=== PATIENT | male | born 1955 | race African-American/Black ===

== ENCOUNTER 2020-12-30 12:15 | Inpatient (IN) | payer MEDICAID, OTHER ==
[~2020-12-30] VITALS: Ht 172.7 cm; Wt 70.8 kg
[2020-12-30] MEDS ORDERED: ACETAMINOPHEN 325MG TABLET PO ONE (12:30)
[2020-12-30] MEDS ORDERED: METOCLOPRAMIDE HCL 10MG/2ML VIAL IV ONE (12:30)
[2020-12-30 13:10] LABS: BASOPHILS % 0.9 % (0.0-2.0); EOSINOPHILS % 1.1 % (0.0-5.0); HEMATOCRIT. 43.7 % (42.0-52.0); HEMOGLOBIN. 15.2 g/dL (14.0-18.0); LYMPHOCYTES % 19.2 % (20.0-50.0); MEAN CORPUSCULAR HEMOGLOBIN 32.5 pg (28.0-32.0); MEAN CORPUSCULAR VOLUME 93.5 fL (80.0-94.0); MEAN PLATELET VOLUME 9.1 fl (7.4-10.4); MONOCYTES % 6.2 % (2.0-8.0); NEUTROPHILS % 72.6 % (40.0-76.0); PLATELET 167 x1000/uL (130-400); RED BLOOD CELL COUNT 4.67 mill/uL (4.7-6.1); RED CELL DISTRIBUTION WIDTH 14.1 % (11.6-14.6)
[2020-12-30 13:17] LABS: CHLORIDE 109 mEq/L (98-107)
[2020-12-30 13:21] LABS: ETHANOL BLOOD < 10 mg/dL
[2020-12-30] MEDS ORDERED: MORPHINE SULFATE 4 MG/ML CPJ (NOT FOR IM USE) IV NR (14:30)
[2020-12-30] MEDS ORDERED: IOHEXOL-350 100 ML BOTTLE ONE (14:35)
[2020-12-30 17:30] LABS: *COCAINE SCREEN URINE NEGATIVE (NEGATIVE)
[2020-12-30 17:32] LABS: *AMPHETAMINES SCREEN URINE NEGATIVE (NEGATIVE); *BARBITURATES SCREEN URINE NEGATIVE (NEGATIVE); *BENZODIAZEPINES SCREEN URINE NEGATIVE (NEGATIVE); CANNABINOID URINE SCREEN NEGATIVE (NEGATIVE); METHADONE URINE SCREEN NEGATIVE (NEGATIVE); OPIATES URINE SCREEN PRESUMTIVE POSITIVE (NEGATIVE); PHENCYCLIDINE URINE SCREEN NEGATIVE (NEGATIVE)
[2020-12-30] MEDS ORDERED: CLONIDINE 0.1MG TABLET PO PRN (23:00)
[2020-12-30] MEDS: HYDROCODONE/ACETAMINOPHEN 10/325MG TABLET PO PRN (23:26)
[2020-12-30 23:55] VITALS: BP 152/73
[2020-12-31] VITALS: BP 123/67
[2020-12-31 04:00] VITALS: BP 133/74
[2020-12-31 06:56] LABS: BASOPHILS % 0.8 % (0.0-2.0); EOSINOPHILS % 2.8 % (0.0-5.0); HEMATOCRIT. 40.4 % (42.0-52.0); HEMOGLOBIN. 13.7 g/dL (14.0-18.0); LYMPHOCYTES % 39.2 % (20.0-50.0); MEAN CORPUSCULAR HEMOGLOBIN 31.9 pg (28.0-32.0); MEAN CORPUSCULAR VOLUME 93.9 fL (80.0-94.0); MEAN PLATELET VOLUME 9.6 fl (7.4-10.4); MONOCYTES % 10.1 % (2.0-8.0); NEUTROPHILS % 47.1 % (40.0-76.0); PLATELET 167 x1000/uL (130-400); RED BLOOD CELL COUNT 4.31 mill/uL (4.7-6.1); RED CELL DISTRIBUTION WIDTH 14.1 % (11.6-14.6)
[2020-12-31] MEDS: HYDROCODONE/ACETAMINOPHEN 10/325MG TABLET PO PRN ×2 (06:58→11:59)
[2020-12-31 07:02] LABS: CHLORIDE 108 mEq/L (98-107)
[2020-12-31 07:10] LABS: LDL CHOLESTEROL 84 mg/dL (5-100)
[2020-12-31 07:12] LABS: HDL CHOLESTEROL 72 mg/dL (40-59)
[2020-12-31] MEDS ORDERED: POTASSIUM CHLORIDE 20MEQ TABLET SR PO SCH (07:45)
[2020-12-31] MEDS ORDERED: PNEUMOCOCCAL 23-VAL P-SAC VAC 0.5 ML IM ONE (08:00)
[2020-12-31] MEDS: LISINOPRIL 20MG TABLET PO SCH (08:50)
[2020-12-31] MEDS: AMLODIPINE 10MG TABLET PO SCH (08:51)
[2020-12-31 10:09] VITALS: BP 148/83
[2020-12-31] MEDS ORDERED: ONDANSETRON HCL 4MG/2ML INJ IV PRN (13:30)
[2020-12-31] MEDS: ONDANSETRON HCL 4MG/2ML INJ IV PRN (13:51)
[2020-12-31] MEDS ORDERED: SUMATRIPTAN SUCCINATE 6MG/0.5ML VIAL SUBCUT NR (14:00)
[2020-12-31 20:00] VITALS: BP 134/68
[2021-01-01] VITALS: BP 118/67
[2021-01-01 04:00] VITALS: BP_SYST 139; BP_SYST 158; BP_DIAS 71; BP_DIAS 75
[2021-01-01] MEDS: ONDANSETRON HCL 4MG/2ML INJ IV PRN (05:10)
[2021-01-01] MEDS ORDERED: SUMATRIPTAN SUCCINATE 6MG/0.5ML VIAL SUBCUT NR (06:00)
[2021-01-01 08:00] VITALS: BP 133/73
[2021-01-01] MEDS: AMLODIPINE 10MG TABLET PO SCH (09:17)
[2021-01-01] MEDS: LISINOPRIL 20MG TABLET PO SCH (09:17)
[2021-01-01] MEDS: KETOROLAC 15MG/ML VIAL IV PRN ×2 (09:37→15:53)
[2021-01-01 12:00] VITALS: BP 125/68
[2021-01-01 16:00] VITALS: BP 149/83
[2021-01-01 18:48] VITALS: BP 154/87
== END 2021-01-01 19:10 | disposition home or self-care (01) | DRG 199 ==
LOC: ER 12:15 → 8WST 15:41 → ENRESERV 20:43
PROVIDERS: ADMIT Internal Medicine; ATTEND Internal Medicine
PROC: 4A10X4Z Monitoring of Central Nervous Electrical Activity, External Approach (ICD-10-PCS; principal; 2021-01-01)
DX: I16.0 Hypertensive urgency (principal); G90.8 Other disorders of autonomic nervous system; D72.819 Decreased white blood cell count, unspecified; G44.229 Chronic tension-type headache, not intractable; G47.30 Sleep apnea, unspecified; G31.9 Degenerative disease of nervous system, unspecified; I10 Essential (primary) hypertension; Z82.49 Family history of ischemic heart disease and other diseases of the circulatory system; Z87.891 Personal history of nicotine dependence; Z91.81 History of falling; F14.11 Cocaine abuse, in remission
CPT/HCPCS: 36415; 70496; 70498; 71045; 80048; 80053; 80061; 80305; 80320; 83880; 84443; 84484; 85025; 93005; 93306; 95816; 99285; J1885; J2270; J2405; J2765; J3030; Q9967; G0480